=== PATIENT | female | born 1985 | race Caucasian/White ===

== ENCOUNTER → 2017-07-10 | Outpatient (REF) | payer OTHER ==
[2017-07-10 11:53] LABS: BASO % 0.6 % (0.0-1.0); EOS # 0.2 10^3/uL (0.0-0.50); EOS % 2.6 % (0.0-3.0); HEMATOCRIT 36.6 % (36.0-47.0); HEMOGLOBIN 11.4 g/dl (12.0-15.5); IMMATURE GRANULOCYTE % 0.3 % (0-3.0); LYMPH # 2.5 10^3/uL (1.5-4.5); LYMPH % 36.3 % (24.0-44.0); MEAN CORPUSCULAR HEMOGLOBIN 25.4 pg (27.0-33.0); MEAN CORPUSCULAR HGB CONC 31.1 g/dl (32.0-36.5); MEAN CORPUSCULAR VOLUME 81.7 fl (80.0-96.0); MONO # 0.5 10^3/uL (0.0-0.8); MONO % 7.3 % (0.0-5.0); NEUTROPHILS # 3.7 10^3/uL (1.8-7.7); NEUTROPHILS % 52.9 % (36.0-66.0); PLATELET COUNT, AUTOMATED 233 10^3/uL (150-450); RED BLOOD COUNT 4.48 10^6/uL (4.00-5.40); RED CELL DISTRIBUTION WIDTH 13.9 % (11.5-14.5)
[2017-07-10 12:24] LABS: ALBUMIN 4.2 GM/DL (3.2-5.2); ALBUMIN/GLOBULIN RATIO 1.35 (1.00-1.93); ALKALINE PHOSPHATASE 69 U/L (45-117); ALT/SGPT 17 U/L (12-78); ANION GAP 9 MEQ/L (8-16); AST/SGOT 22 U/L (7-37); BILIRUBIN,TOTAL 0.5 MG/DL (0.2-1.0); BLOOD UREA NITROGEN 13 MG/DL (7-18); CARBON DIOXIDE LEVEL 28 MEQ/L (21-32); CHLORIDE LEVEL 104 MEQ/L (98-107); CHOLESTEROL LEVEL 130 MG/DL (<200); CREATININE FOR GFR 0.79 MG/DL (0.55-1.30); GLOMERULAR FILTRATION RATE > 60.0 (>60); GLUCOSE, FASTING 99 MG/DL (70-100); HDL CHOLESTEROL 50 MG/DL (>40); LDL CHOLESTEROL 62.8 MG/DL (<100); NON-HDL-C 80 MG/DL; POTASSIUM SERUM 3.9 MEQ/L (3.5-5.1); SODIUM LEVEL 141 MEQ/L (136-145); TOTAL PROTEIN 7.3 GM/DL (6.4-8.2); TRIGLYCERIDES LEVEL 86 MG/DL (<150)
== END ==
LOC: M SFHCCLAY 07:55
DX: Z13.6 Encounter for screening for cardiovascular disorders (principal)
CPT/HCPCS: 84443

== ENCOUNTER → 2017-07-14 | Outpatient (REF) | payer OTHER ==
[2017-07-14 17:52] LABS: FERRITIN 4 NG/ML (8-252); IRON (FE) 69 UG/DL (50-170); PERCENT SATURATION 14.1 % (13.2-45.0); TOTAL IRON BINDING CAPACITY 491 UG/DL (250-450)
== END ==
LOC: M SFHCCAPE 09:33
DX: D64.9 Anemia, unspecified (principal)
CPT/HCPCS: 83550

== ENCOUNTER → 2017-09-11 | Outpatient (REF) | payer OTHER ==
[2017-09-16 14:58] LABS: HPV HYBRID CAPTURE II Negative (Negative)
== END ==
LOC: M LAB REF 17:10
DX: Z12.4 Encounter for screening for malignant neoplasm of cervix (principal)

== ENCOUNTER → 2018-07-07 | Outpatient (REF) | payer OTHER ==
[~2018-07-07] MED LIST: FERR325T18 PO; IBUP80TA PO; IRON325T PO; MAPA500T2 PO; PRENTAB43 PO; VITMTA PO
[2018-07-07 19:19] LABS: EOS % 0.8 % (0.0-3.0); HEMATOCRIT 24.8 % (36.0-47.0); LYMPH # 1.3 10^3/uL (1.5-4.5); LYMPH % 32.8 % (24.0-44.0); MEAN CORPUSCULAR HEMOGLOBIN 17.3 pg (27.0-33.0); MEAN CORPUSCULAR VOLUME 69.1 fl (80.0-96.0); MONO # 0.2 10^3/uL (0.0-0.8); MONO % 5.8 % (0.0-5.0); NEUTROPHILS # 2.4 10^3/uL (1.8-7.7); NEUTROPHILS % 59.3 % (36.0-66.0); PLATELET COUNT, AUTOMATED 223 10^3/uL (150-450); RED BLOOD COUNT 3.59 10^6/uL (4.00-5.40)
[2018-07-07 19:27] LABS: ALBUMIN 4.2 GM/DL (3.2-5.2); ALT/SGPT 17 U/L (12-78); BILIRUBIN,TOTAL 0.5 MG/DL (0.2-1.0); BLOOD UREA NITROGEN 14 MG/DL (7-18); CALCIUM LEVEL 8.2 MG/DL (8.5-10.1); CARBON DIOXIDE LEVEL 25 MEQ/L (21-32); CHLORIDE LEVEL 108 MEQ/L (98-107); CHOLESTEROL LEVEL 121 MG/DL (<200); CREATININE FOR GFR 0.74 MG/DL (0.55-1.30); FERRITIN 3 NG/ML (8-252); GLOMERULAR FILTRATION RATE > 60.0 (>60); GLUCOSE, FASTING 93 MG/DL (70-100); HDL CHOLESTEROL 54 MG/DL (>40); IRON (FE) 106 UG/DL (50-170); LDL CHOLESTEROL 55 MG/DL (<100); NON-HDL-C 67 MG/DL; PERCENT SATURATION 21.3 % (13.2-45.0); POTASSIUM SERUM 3.8 MEQ/L (3.5-5.1); SODIUM LEVEL 139 MEQ/L (136-145); TOTAL IRON BINDING CAPACITY 498 UG/DL (250-450); TOTAL PROTEIN 7.2 GM/DL (6.4-8.2); TRIGLYCERIDES LEVEL 62 MG/DL (<150); VITAMIN B12 LEVEL 699 PG/ML (247-911)
[2018-07-07 19:32] LABS: HEMOGLOBIN 6.2 g/dl (12.0-15.5)
[2018-07-12 06:25] LABS: HEMOGLOBIN A1c 5.3 %
== END ==
LOC: M SFHCCAPE 09:11
PROVIDERS: ATTEND Physician Assistant
DX: Z13.6 Encounter for screening for cardiovascular disorders (principal); D64.9 Anemia, unspecified; Z83.3 Family history of diabetes mellitus
CPT/HCPCS: 36415; 80053; 80061; 82607; 82728; 83036; 83550; 84443; 85025; 93005; G0463

== ENCOUNTER 2018-07-08 13:56 | Emergency (ER) | payer OTHER ==
[~2018-07-08] VITALS: Ht 162.6 cm; Wt 63.6 kg
[~2018-07-08 13:56] MED LIST changes: -FERR325T18 PO; -VITMTA PO
[2018-07-08] MEDS ORDERED: FERR325T18 PO (14:03)
[2018-07-08 14:44] LABS: BASO % 0.3 % (0.0-1.0); EOS % 0.3 % (0.0-3.0); HEMATOCRIT 24.2 % (36.0-47.0); LYMPH % 27.2 % (24.0-44.0); MEAN CORPUSCULAR HEMOGLOBIN 17.7 pg (27.0-33.0); MONO # 0.4 10^3/uL (0.0-0.8); MONO % 5.3 % (0.0-5.0); NEUTROPHILS # 4.8 10^3/uL (1.8-7.7); NEUTROPHILS % 66.6 % (36.0-66.0); PLATELET COUNT, AUTOMATED 245 10^3/uL (150-450); RED BLOOD COUNT 3.56 10^6/uL (4.00-5.40); WHITE BLOOD COUNT 7.2 10^3/uL (4.0-10.0)
[2018-07-08 15:00] LABS: INR 1.07
[2018-07-08 15:01] LABS: PARTIAL THROMBOPLASTIN TIME 30.9 SECONDS (25.4-37.6)
[2018-07-08 15:02] LABS: HEMOGLOBIN 6.3 g/dl (12.0-15.5)
--- NOTE | 2018-07-08 15:02 | REP ---
CHEST, SINGLE VIEW: There is no evidence of acute infiltrate. No pleural effusion is seen. The heart is normal in size. The mediastinal silhouette is unremarkable. The visualized osseous structures are intact. IMPRESSION: No acute pulmonary disease. Electronically Signed by Migue Byrd MD 07/09/2018 12:22 P
[2018-07-08] MEDS ORDERED: VITMTA PO (15:11)
[2018-07-08 15:26] LABS: ALBUMIN 4.1 GM/DL (3.2-5.2); ALT/SGPT 18 U/L (12-78); BILIRUBIN,DIRECT < 0.1 MG/DL (0.0-0.2); BILIRUBIN,TOTAL 0.4 MG/DL (0.2-1.0); BLOOD UREA NITROGEN 13 MG/DL (7-18); CALCIUM LEVEL 8.5 MG/DL (8.5-10.1); CARBON DIOXIDE LEVEL 25 MEQ/L (21-32); CHLORIDE LEVEL 108 MEQ/L (98-107); CK-MB VALUE MASS < 1.0 NG/ML (<3.6); CPK CREATINE PHOSPHOKINASE 59 U/L (26-192); FREE T4 1.11 NG/DL (0.76-1.46); GLOMERULAR FILTRATION RATE > 60.0 (>60); GLUCOSE, FASTING 86 MG/DL (70-100); LIPASE 194 U/L (73-393); MB/CK RELATIVE INDEX 1.69 (< OR =4); POTASSIUM SERUM 3.5 MEQ/L (3.5-5.1); SODIUM LEVEL 140 MEQ/L (136-145); TOTAL PROTEIN 7.5 GM/DL (6.4-8.2); TROPONIN I < 0.02 NG/ML (< 0.10)
--- NOTE | 2018-07-08 16:09 | REP ---
PELVIC ULTRASOUND: Real-time sonographic evaluation of the pelvis was performed utilizing transabdominal and endovaginal technique. The bladder measures 13.4 x 6.9 x 9.0 cm. The uterus measures 8.5 x 4.7 x 6.6 cm. Endometrial thickness is 3 mm. The uterus is retroverted. Right ovary measures 3.7 x 2.0 x 2.0 cm and left ovary 3.9 x 1.8 x 2.1 cm. There is mild complex free fluid in the pelvis. No torsion is seen of either ovary. Normal sized follicles are seen. There is no adnexal mass. IMPRESSION: Normal endometrial thickness. No ovarian torsion. Mild complex free fluid in the pelvis. No other significant finding. Electronically Signed by Migue Byrd MD 07/09/2018 12:28 P
[2018-07-08 17:13] LABS: CHLAMYDIA DNA AMPLIFICATION NEGATIVE (NEGATIVE); GC DNA AMPLIFICATION NEGATIVE (NEGATIVE)
[2018-07-08] MEDS ORDERED: ACETAMINOPHEN 500 MG TAB PO PRN (18:15)
--- NOTE | 2018-07-08 18:20 | HPEPDOC ---
General Date of Admission 07/08/18 Chief Complaint The patient is a 33-year-old female admitted with a reason for visit of Blood Transfusion. History of Present Illness 33-year-old female with past medical history of iron deficiency anemia presented to the ER with a chief complaint of chest pain, generalized fatigue, and shor tness of breath. The patient states that she went to see her primary care physician yesterday and had lab work drawn which revealed a hemoglobin of 6.2. She was instructed to go to the ER for a blood transfusion. The patient states that she has been having heavier menstrual bleeding over the last several months. She states that she has been having a 10 day long menses every 3 weeks. She notes that on the first few days of the menstrual cycle she soaks about 3-4 pads daily, and then continues to spot thereafter. 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 Otherwise, the patient denies any complaints of fevers, chills, abdominal pain, nausea/vomiting/diarrhea, or any other overt sources of bleeding. In the ER, a vaginal exam done by the ER provider did not reveal any acute findings. An ultrasound of the pelvis revealed normal endometrial thickness with no ovarian torsion. The patient will be admitted under the hospitalist service for blood transfusion. Home Medications Scheduled Ferrous Sulfate (Ferrous Sulfate) 325 Mg Tablet, 325 MG PO DAILY, (Reported) Multivitamins (Thera M Plus Tablet) 1 Each Tablet, 1 TAB PO DAILY, (Reported) Scheduled PRN Acetaminophen (Mapap) 500 Mg Tab, 1,000 MG PO Q6H PRN for PAIN, (Reported) Allergies Coded Allergies: No Known Allergies (Unverified , 05/15/14) Past Medical History Medical History As noted in HPI. Social History * Smoker: Denies Alcohol: Denies Drugs: denies A-FIB/CHADSVASC A-FIB History Current/History of A-Fib/PAF?: No Review of Systems Other systems 10 point review of systems negative unless otherwise specified in HPI. Physical Examination General Exam: Positive: Alert, Cooperative, No Acute Distress ENT Exam: Positive: Atraumatic, Mucous membr. moist/pink Neck Exam: Negative: JVD Chest Exam: Positive: Clear to auscultation, Normal air movement Heart Exam: Positive: Rate Normal, Normal S1, Normal S2 Abdomen Exam: Positive: Soft; Negative: Tenderness Extremity Exam: Negative: Tenderness, Swelling Psych Exam: Positive: Oriented x 3 Vital Signs Vital Signs Date Time Temp Pulse Resp B/P (MAP) Pulse Ox O2 Delivery O2 Flow Rate FiO2 07/08/18 17:40 98.2 81 18 99/64 (76) 100 Room Air Laboratory Data Labs 24H Laboratory Tests 2 07/08/18 14:15: Anion Gap 7L, Glomerular Filtration Rate > 60.0, Calcium Level 8.5, Aspartate Amino Transf (AST/SGOT) 20, Alanine Aminotransferase (ALT/SGPT) 18, Alkaline Phosphatase 58, Total Bilirubin 0.4, Direct Bilirubin < 0.1, Total Creatine Kinase 59, Creatine Kinase MB < 1.0, Creatine Kinase MB Relative Index 1.69, Troponin I < 0.02, Total Protein 7.5, Albumin 4.1, Albumin/Globulin Ratio 1.21, Lipase 194, Thyroid Stimulating Hormone (TSH) 2.280, Free Thyroxine 1.11 07/08/18 14:18: Immature Granulocyte % (Auto) 0.3, White Blood Count 7.2, Red Blood Count 3.56L, Hemoglobin 6.3*L, Hematocrit 24.2L, Mean Corpuscular Volume 68.0L, Mean Corpuscular Hemoglobin 17.7L, Mean Corpuscular Hemoglobin Concent 26.0L, Red Cell Distribution Width 18.3H, Platelet Count 245, Neutrophils (%) (Auto) 66.6H, Lymphocytes (%) (Auto) 27.2, Monocytes (%) (Auto) 5.3H, Eosinophils (%) (Auto) 0.3, Basophils (%) (Auto) 0.3, Neutrophils # (Auto) 4.8, Lymphocytes # (Auto) 2.0, Monocytes # (Auto) 0.4, Eosinophils # (Auto) 0.0, Basophils # (Auto) 0.0, Nucleated Red Blood Cells % (auto) 0.0, Prothrombin Time 14.0, Prothromb Time International Ratio 1.07, Activated Partial Thromboplast Time 30.9 07/08/18 14:56: POC Beta HCG, Quantitative < 5.0 07/08/18 15:19: Chlamydia trachomatis DNA (LEI) NEGATIVE, Neisseria gonorrhoeae DNA (LEI) NEGATIVE, Trichomonas vaginalis (PCR) NOT DETECTED CBC/BMP Laboratory Tests 07/08/18 14:15 07/08/18 14:18 Red Blood Count 3.56 L, Mean Corpuscular Volume 68.0 L, Mean Corpuscular Hemoglobin 17.7 L, Mean Corpuscular Hemoglobin Concent 26.0 L, Red Cell Distribution Width 18.3 H, Neutrophils (%) (Auto) 66.6 H, Lymphocytes (%) (Auto) 27.2, Monocytes (%) (Auto) 5.3 H, Eosinophils (%) (Auto) 0.3, Basophils (%) (A uto) 0.3, Neutrophils # (Auto) 4.8, Lymphocytes # (Auto) 2.0, Monocytes # (Auto) 0.4, Eosinophils # (Auto) 0.0, Basophils # (Auto) 0.0 Microbiology Microbiology 07/08/18 Wet Prep - Final, Complete Plan / VTE VTE Prophylaxis Ordered?: Yes Plan Plan Symptomatic Anemia 2/2 Menorrhagia Vaginal Exam in the ER with no overt findings of mass, cervical tenderness, or any other abnormalities according to the ER provider Pelvic U/S with no acute findings We will transfuse the patient 2 Units of PRBC's Patient encouraged to continue taking her iron supplementation, as she states that she has not done so for the past 2 months due to running out of a prescription. We will call the patient's gynecology office to set up a close follow up after discharge. Continue to monitor in the interim DVT Prophylaxis OOB, Ambulation + SCDs/RICHARD Menchaca MD July 08, 2018 18:20
[2018-07-08 20:06] VITALS: BP 117/78
--- NOTE | 2018-07-08 22:21 | ECGEPIP ---
Stationary ECG Study [facility] - ED Test Date: 2018-07-08 Pat Name: ELIZABETH POP Department: Room: - Gender: F [employer] Helper: arnoldo : 1985 Requested By: Irina Denson Order Number: [id number] Reading MD: Rissa Rosales Measurements Intervals [place] Rate: 88 P: 61 [place]: 145 QRS: 23 QRSD: 79 T: 13 QT: 344 QTc: 417 Interpretive Statements SINUS RHYTHM NO PRIOR FOR COMPARISON Electronically Signed On 07-08-2018 22:21:16 EDT by Rissa Rosales
[2018-07-09] MEDS ORDERED: MULTIVITAMINS/MINERALS THERAP 1 TAB PO SCH (09:00)
[2018-07-09] MEDS ORDERED: FERROUS SULFATE 325MG TAB PO SCH (09:00)
== END 2018-07-08 19:56 | disposition home or self-care (01) ==
LOC: M ED 13:56
DX: D50.0 Iron deficiency anemia secondary to blood loss (chronic) (principal); N92.0 Excessive and frequent menstruation with regular cycle; K92.2 Gastrointestinal hemorrhage, unspecified; Z79.899 Other long term (current) drug therapy; Z79.3 Long term (current) use of hormonal contraceptives

== ENCOUNTER 2018-07-08 17:15 | Observation (INO) | payer OTHER ==
[~2018-07-08] VITALS: Ht 165.1 cm; Wt 64.7 kg
[~2018-07-08 17:15] MED LIST changes: +FERR325T18 PO; +VITMTA PO
[2018-07-08 20:06] VITALS: BP 117/78
[2018-07-08 20:55] VITALS: BP 129/81
[2018-07-08] MEDS ORDERED: ACETAMINOPHEN 500 MG TAB PO PRN (22:45)
[2018-07-08] MEDS ORDERED: ACETAMINOPHEN TAB 650MG DOSE (2X325MG) PO PRN (22:45)
--- NOTE | 2018-07-09 04:39 | TRANSCARE ---
Transition of Care: Transition of Care Notified by nursing on 07/08/18at 2210 regarding wrong account number registration and that pt still in house but will need ordered to be re-ordered. All orders were re-ordered the same upon admission except for admission orders. Discussed with night time attending. CHER DELGADILLO DO July 09, 2018 04:38
[2018-07-09 06:00] VITALS: BP 108/65
[2018-07-09 07:06] LABS: HEMATOCRIT 30.4 % (36.0-47.0); MEAN CORPUSCULAR HEMOGLOBIN 20.5 pg (27.0-33.0); MEAN CORPUSCULAR HGB CONC 28.3 g/dl (32.0-36.5); MEAN CORPUSCULAR VOLUME 72.6 fl (80.0-96.0); PLATELET COUNT, AUTOMATED 216 10^3/uL (150-450); RED BLOOD COUNT 4.19 10^6/uL (4.00-5.40); WHITE BLOOD COUNT 5.7 10^3/uL (4.0-10.0)
[2018-07-09 07:09] LABS: HEMOGLOBIN 8.6 g/dl (12.0-15.5)
[2018-07-09 07:22] LABS: BLOOD UREA NITROGEN 14 MG/DL (7-18); CALCIUM LEVEL 8.5 MG/DL (8.5-10.1); CARBON DIOXIDE LEVEL 27 MEQ/L (21-32); CHLORIDE LEVEL 110 MEQ/L (98-107); CREATININE FOR GFR 0.74 MG/DL (0.55-1.30); GLOMERULAR FILTRATION RATE > 60.0 (>60); GLUCOSE, FASTING 84 MG/DL (70-100); SODIUM LEVEL 140 MEQ/L (136-145)
[2018-07-09] MEDS ORDERED: FERROUS SULFATE 325MG TAB PO SCH (09:00)
[2018-07-09] MEDS ORDERED: MULTIVITAMINS/MINERALS THERAP 1 TAB PO SCH (09:00)
[2018-07-09] MEDS ORDERED: INFLUENZA QUADRIVALENT PF VACCINE 0.5ML SYRINGE (90686) IM ONE (09:00)
--- NOTE | 2018-07-09 17:17 | DS.PDOC ---
Discharge Summary General Date of Admission July 08, 2018 at 17:15 Date of Discharge 07/09/18 Discharge Summary PROCEDURES PERFORMED DURING STAY: None. ADMITTING/DISCHARGE DIAGNOSES: Symptomatic anemia secondary to menorrhagia COMPLICATIONS/CHIEF COMPLAINT: Symptomic Anemia. HISTORY OF PRESENT ILLNESS: . 33-year-old female with past medical history of iron deficiency anemia presented to the ER with a chief complaint of chest pain, generalized fatigue, and shortness of breath. The patient states that she went to see her primary care physician yesterday and had lab work drawn which revealed a hemoglobin of 6.2. She was instructed to go to the ER for a blood transfusion. The patient states that she has been having heavier menstrual bleeding over the last several months. She states that she has been having a 10 day long menses every 3 weeks. She notes that on the first few days of the menstrual cycle she soaks about 3-4 pads daily, and then continues to spot thereafter. She reports that she last saw her bag patcher one year ago and was told that her heavy menstrual cycle was due to her Nexplanon etonogestrel implant for control. Otherwise, the patient denies any complaints of fevers, chills, abdominal pain, nausea/vomiting/diarrhea, or any other overt sources of bleeding. In the ER, a vaginal exam done by the ER provider did not reveal any acute findings. An ultrasound of the pelvis revealed normal endometrial thickness with no ovarian torsion. The patient will be admitted under the hospitalist service for blood transfusion. During hospitalization, the patient received 2 units of packed red blood cells. The patient's hemoglobin up trended appropriately. The patient stated that she feels back to her baseline and denies any complaints of shortness of breath, chest pain. She has been noted to be ambulating in her room and in the hallway without any acute complaints. The patient states that she is eager to go home at this time. I have extensively discussed the need for the patient to follow-up with her bag patcher for further workup of her menorrhagia. She has been s cheduled an appointment with [facility] on 07[facility]18 at 3 PM. She is to follow-up with her primary care physician within 7 days. DISCHARGE MEDICATIONS: Please see below. ALLERGIES: Please see below. PHYSICAL EXAMINATION ON DISCHARGE: VITAL SIGNS: Please see below. General Exam: Positive: Alert, Cooperative, No Acute Distress ENT Exam: Positive: Atraumatic, Mucous membr. moist/pink Neck Exam: Negative: JVD Chest Exam: Positive: Clear to auscultation, Normal air movement Heart Exam: Positive: Rate Normal, Normal S1, Normal S2 Abdomen Exam: Positive: Soft; Negative: Tenderness Extremity Exam: Negative: Tenderness, Swelling Psych Exam: Positive: Oriented x 3 LABORATORY DATA: Please see below. IMAGING: CHEST, SINGLE VIEW: There is no evidence of acute infiltrate. No pleural effusion is seen. The heart is normal in size. The mediastinal silhouette is unremarkable. The visualized osseous structures are intact. IMPRESSION: No acute pulmonary disease. PELVIC ULTRASOUND: Real-time sonographic evaluation of the pelvis was performed utilizing transabdominal and endovaginal technique. The bladder measures 13.4 x 6.9 x 9.0 cm. The uterus measures 8.5 x 4.7 x 6.6 cm. Endometrial thickness is 3 mm. The uterus is retroverted. Right ovary measures 3.7 x 2.0 x 2.0 cm and left ovary 3.9 x 1.8 x 2.1 cm. There is mild complex free fluid in the pelvis. No torsion is seen of either ovary. Normal sized follicles are seen. There is no adnexal mass. IMPRESSION: Normal endometrial thickness. No ovarian torsion. Mild complex free fluid in the pelvis. No other significant finding. PROGNOSIS: Fair ACTIVITY: As tolerated. DIET: Regular diet DISCHARGE PLAN: DISPOSITION: 01 Home, Self-Care. DISCHARGE INSTRUCTIONS: I have extensively discussed the need for the patient to follow-up with her bag patcher for further workup of her menorrhagia. She has been scheduled an appointment with [facility] on 07/13/18 at 3 PM. She is to follow-up with her primary care physician within 7 days. DISCHARGE CONDITION: Stable. TIME SPENT ON DISCHARGE: Greater than 30 minutes. Vital Signs/I&Os Vital Signs Date Time Temp Pulse Resp B/P (MAP) Pulse Ox O2 Delivery O2 Flow Rate FiO2 07/09/18 06:00 97.8 70 16 108/65 (79) 98 I&O- Last 24 Hours up to 6 AM 07/09/18 06:00 Intake Total 0 ml Output Total 0 ml Balance 0 ml Laboratory Data Labs 24H Laboratory Tests 2 07/09/18 06:37: Nucleated Red Blood Cells % (auto) 0.0, Anion Gap 3L, Glomerular Filtration Rate > 60.0, Blood Urea Nitrogen 14, Creatinine 0.74, Sodium Level 140, Potassium Level 4.0, Chloride Level 110H, Carbon Dioxide Level 27, Calcium Level 8.5 CBC/BMP Laboratory Tests 07/09/18 06:37 Red Blood Count 4.19, Mean Corpuscular Volume 72.6 L, Mean Corpuscular Hemoglobin 20.5 L, Mean Corpuscular Hemoglobin Concent 28.3 L, Red Cell Distribution Width 21.0 H, Calcium Level 8.5 Discharge Medications Scheduled Ferrous Sulfate (Ferrous Sulfate) 325 Mg Tablet, 325 MG PO DAILY, (Reported) Multivitamins (Thera M Plus Tablet) 1 Each Tablet, 1 TAB PO DAILY, (Reported) Scheduled PRN Acetaminophen (Mapap) 500 Mg Tab, 1,000 MG PO Q6H PRN for PAIN, (Reported) Allergies Coded Allergies: No Known Allergies (Unverified , 05/15/14) RICHARD BURROWS MD July 09, 2018 17:17
== END 2018-07-09 11:30 | disposition home or self-care (01) ==
LOC: M ED INP 17:15 → M MS4PR 20:00
PROVIDERS: ADMIT Internal Medicine; ATTEND Internal Medicine
DX: D64.9 Anemia, unspecified (principal); N92.4 Excessive bleeding in the premenopausal period; Z79.899 Other long term (current) drug therapy; R07.9 Chest pain, unspecified; R53.83 Other fatigue; R06.02 Shortness of breath
CPT/HCPCS: 36415; 36430; 71045; 76830; 76856; 80048; 80076; 82550; 82553; 83690; 84439; 84443; 84484; 84702; 85025; 85027; 85610; 85730; 86850; 86900; 86901; 86920; 87210; 87661; 90471; 90686; 93005; 93041; 93976; 94760; 99285; P9016

== ENCOUNTER → 2018-07-15 | Outpatient (REF) | payer OTHER ==
[2018-07-15 16:53] LABS: BASO % 0.7 % (0.0-1.0); EOS # 0.1 10^3/uL (0.0-0.50); EOS % 1.7 % (0.0-3.0); HEMATOCRIT 34.2 % (36.0-47.0); HEMOGLOBIN 9.4 g/dl (12.0-15.5); LYMPH # 1.7 10^3/uL (1.5-4.5); LYMPH % 29.4 % (24.0-44.0); MEAN CORPUSCULAR HEMOGLOBIN 20.5 pg (27.0-33.0); MEAN CORPUSCULAR HGB CONC 27.5 g/dl (32.0-36.5); MEAN CORPUSCULAR VOLUME 74.5 fl (80.0-96.0); MONO # 0.3 10^3/uL (0.0-0.8); MONO % 5.4 % (0.0-5.0); NEUTROPHILS # 3.7 10^3/uL (1.8-7.7); NEUTROPHILS % 62.5 % (36.0-66.0); PLATELET COUNT, AUTOMATED 213 10^3/uL (150-450); RED BLOOD COUNT 4.59 10^6/uL (4.00-5.40); WHITE BLOOD COUNT 5.9 10^3/uL (4.0-10.0)
[2018-07-15 17:15] LABS: ALT/SGPT 19 U/L (12-78); BILIRUBIN,TOTAL 0.6 MG/DL (0.2-1.0); BLOOD UREA NITROGEN 10 MG/DL (7-18); CALCIUM LEVEL 9.1 MG/DL (8.5-10.1); CARBON DIOXIDE LEVEL 25 MEQ/L (21-32); CHLORIDE LEVEL 107 MEQ/L (98-107); CREATININE FOR GFR 0.69 MG/DL (0.55-1.30); FERRITIN 10 NG/ML (8-252); GLOMERULAR FILTRATION RATE > 60.0 (>60); GLUCOSE, FASTING 86 MG/DL (70-100); IRON (FE) 259 UG/DL (50-170); PERCENT SATURATION 54.9 % (13.2-45.0); POTASSIUM SERUM 4.2 MEQ/L (3.5-5.1); SODIUM LEVEL 139 MEQ/L (136-145); TOTAL IRON BINDING CAPACITY 472 UG/DL (250-450); TOTAL PROTEIN 7.3 GM/DL (6.4-8.2)
== END ==
LOC: M SFHCCAPE 09:43
PROVIDERS: ATTEND Physician Assistant
DX: D50.9 Iron deficiency anemia, unspecified (principal)

== ENCOUNTER → 2018-08-16 | Outpatient (REF) | payer OTHER ==
[2018-08-16 15:12] LABS: CHLAMYDIA DNA AMPLIFICATION NEGATIVE (NEGATIVE); GC DNA AMPLIFICATION NEGATIVE (NEGATIVE)
== END ==
LOC: M LAB REF 13:01
PROVIDERS: ATTEND Advanced Practice Midwife
DX: Z11.3 Encounter for screening for infections with a predominantly sexual mode of transmission (principal)

== ENCOUNTER → 2019-08-12 | Outpatient (REF) | payer OTHER ==
[2019-08-12 12:32] LABS: BASO % 0.4 % (0.0-1.0); EOS # 0.1 10^3/uL (0.0-0.5); EOS % 1.7 % (0.0-3.0); HEMATOCRIT 43.2 % (36.0-47.0); HEMOGLOBIN 15.1 g/dl (12.0-15.5); LYMPH # 2.2 10^3/uL (1.5-5.0); LYMPH % 30.4 % (24.0-44.0); MEAN CORPUSCULAR HEMOGLOBIN 31.5 pg (27.0-33.0); MONO # 0.4 10^3/uL (0.0-0.8); MONO % 5.5 % (0.0-5.0); NEUTROPHILS # 4.4 10^3/uL (1.5-8.5); NEUTROPHILS % 61.7 % (36.0-66.0); PLATELET COUNT, AUTOMATED 196 10^3/uL (150-450); WHITE BLOOD COUNT 7.1 10^3/uL (4.0-10.0)
[2019-08-12 13:05] LABS: PERCENT SATURATION 56.6 % (13.2-45.0)
== END ==
LOC: M LABDRAWC 11:39
PROVIDERS: ATTEND Internal Medicine Hematology & Oncology
DX: D64.9 Anemia, unspecified (principal)

== ENCOUNTER → 2020-09-03 | Outpatient (REF) | payer OTHER ==
[2020-09-03 16:31] LABS: ALBUMIN 4.1 GM/DL (3.2-5.2); ALT/SGPT 19 U/L (12-78); BILIRUBIN,TOTAL 0.8 MG/DL (0.2-1.0); BLOOD UREA NITROGEN 18 MG/DL (7-18); CALCIUM LEVEL 9.2 MG/DL (8.5-10.1); CARBON DIOXIDE LEVEL 27 MEQ/L (21-32); CHLORIDE LEVEL 105 MEQ/L (98-107); CHOLESTEROL LEVEL 161 MG/DL (<200); CHOLESTEROL RISK RATIO 3.659 (<5); CREATININE FOR GFR 0.71 MG/DL (0.55-1.30); FERRITIN 110 NG/ML (8-252); GLOMERULAR FILTRATION RATE > 60.0 (>60); GLUCOSE, FASTING 91 MG/DL (70-100); HDL CHOLESTEROL 44 MG/DL (>40); IRON (FE) 89 UG/DL (50-170); LDL CHOLESTEROL 100 MG/DL (<100); NON-HDL-C 117 MG/DL; PERCENT SATURATION 29.7 % (13.2-45.0); POTASSIUM SERUM 4.3 MEQ/L (3.5-5.1); SODIUM LEVEL 138 MEQ/L (136-145); TOTAL 25(OH) VITAMIN D 16.8 NG/ML (30.0-100.0); TOTAL IRON BINDING CAPACITY 300 UG/DL (250-450); TOTAL PROTEIN 7.2 GM/DL (6.4-8.2); TRIGLYCERIDES LEVEL 86 MG/DL (<150)
== END ==
LOC: M SFHCCLAY 09:20
PROVIDERS: ATTEND Physician Assistant
DX: Z00.00 Encounter for general adult medical examination without abnormal findings (principal); D50.0 Iron deficiency anemia secondary to blood loss (chronic)

== ENCOUNTER → 2021-02-07 | Outpatient (CLI) | payer OTHER | LOC: M PLAIMG 15:19 | PROVIDERS: ATTEND Physician Assistant | DX: G43.019 Migraine without aura, intractable, without status migrainosus (principal) ==

== ENCOUNTER → 2022-01-06 | Outpatient (REF) | payer OTHER | LOC: M SFHCCAPE 10:28 | PROVIDERS: ATTEND Physician Assistant | DX: Z01.419 Encounter for gynecological examination (general) (routine) without abnormal findings (principal) ==

== ENCOUNTER → 2022-05-15 | Outpatient (CLI) | payer OTHER | LOC: M CLY 10:41 | PROVIDERS: ATTEND Physician Assistant | DX: M25.561 Pain in right knee (principal) ==

== ENCOUNTER → 2023-04-15 | Outpatient (CLI) | payer OTHER | LOC: M CLY 14:58 | PROVIDERS: ATTEND Physician Assistant Medical | DX: M25.542 Pain in joints of left hand (principal) ==

== ENCOUNTER → 2023-06-29 | Outpatient (REF) | payer OTHER ==
[2023-06-29 17:38] LABS: BASO % 0.4 % (0.0-1.0); EOS % 0.6 % (0.0-3.0); HEMATOCRIT 41.9 % (36.0-47.0); LYMPH % 30.2 % (24.0-44.0); MEAN CORPUSCULAR HEMOGLOBIN 30.6 pg (27.0-33.0); MEAN CORPUSCULAR HGB CONC 33.4 g/dl (32.0-36.5); MEAN CORPUSCULAR VOLUME 91.7 fl (80.0-96.0); MONO # 0.4 10^3/uL (0.0-0.8); MONO % 5.9 % (2.0-8.0); NEUTROPHILS # 4.2 10^3/uL (1.5-8.5); NEUTROPHILS % 62.8 % (36.0-66.0); PLATELET COUNT, AUTOMATED 243 10^3/uL (150-450); RED BLOOD COUNT 4.57 10^6/uL (4.00-5.40); WHITE BLOOD COUNT 6.7 10^3/uL (4.0-10.0)
[2023-06-29 17:58] LABS: ALBUMIN 4.2 G/DL (3.2-5.2); ALKALINE PHOSPHATASE 81 U/L (46-116); ALT/SGPT 23 U/L (7.0-40); AST/SGOT 27 U/L (<34); BLOOD UREA NITROGEN 11 MG/DL (9-23); CALCIUM LEVEL 9.7 MG/DL (8.5-10.1); CARBON DIOXIDE LEVEL 30 MMOL/L (20-31); CHLORIDE LEVEL 102 MMOL/L (98-107); CHOLESTEROL LEVEL 154 MG/DL (<200); CHOLESTEROL RISK RATIO 3.13 (<5); CREATININE FOR GFR 0.68 MG/DL (0.55-1.30); GLOMERULAR FILTRATION RATE > 60.0 (>58); GLUCOSE, FASTING 91 MG/DL (60-100); HDL CHOLESTEROL 49.2 MG/DL (>40); IRON (FE) 92 UG/DL (50-170); LDL CHOLESTEROL 90.2 MG/DL (<100); NON-HDL-C 104.8 MG/DL; PERCENT SATURATION 27.6 % (13.2-45.0); SODIUM LEVEL 137 MMOL/L (136-145); TOTAL IRON BINDING CAPACITY 333 UG/DL (250-425); TOTAL PROTEIN 6.9 G/DL (5.7-8.2); TRIGLYCERIDES LEVEL 73 MG/DL (<150)
[2023-06-29 18:00] LABS: HEMOGLOBIN A1c 4.6 % (4.0-6.0)
== END ==
LOC: M SFHCCLAY 11:37
PROVIDERS: ATTEND Physician Assistant Medical
DX: D50.9 Iron deficiency anemia, unspecified (principal); G43.019 Migraine without aura, intractable, without status migrainosus; Z13.220 Encounter for screening for lipoid disorders; Z13.1 Encounter for screening for diabetes mellitus

== ENCOUNTER → 2023-08-20 | Outpatient (REF) | payer OTHER ==
[2023-08-22 12:28] LABS: HPV APTIMA Not Detected (Not Detected)
== END ==
LOC: M SFHCWAGY 12:34
PROVIDERS: ATTEND Nurse Practitioner Family
DX: Z12.4 Encounter for screening for malignant neoplasm of cervix (principal)
CPT/HCPCS: 87624; G0123

== ENCOUNTER → 2023-08-20 | Outpatient (CLI) | payer OTHER | LOC: M WHC 11:00 | PROVIDERS: ATTEND Nurse Practitioner Family | DX: Z12.31 Encounter for screening mammogram for malignant neoplasm of breast (principal); R92.333 Mammographic heterogeneous density, bilateral breasts ==

== ENCOUNTER → 2023-10-13 | Outpatient (CLI) | payer OTHER | LOC: M WHC 12:54 | PROVIDERS: ATTEND Nurse Practitioner Family | DX: Z12.31 Encounter for screening mammogram for malignant neoplasm of breast (principal) ==

== ENCOUNTER → 2023-11-10 | Outpatient (REF) | payer OTHER ==
[2023-11-10 17:42] LABS: BASO % 0.3 % (0.0-1.0); EOS % 0.3 % (0.0-3.0); HEMATOCRIT 40.1 % (36.0-47.0); HEMOGLOBIN 13.6 g/dl (12.0-15.5); LYMPH # 2.1 10^3/uL (1.5-5.0); LYMPH % 26.5 % (24.0-44.0); MEAN CORPUSCULAR HEMOGLOBIN 30.7 pg (27.0-33.0); MEAN CORPUSCULAR HGB CONC 33.9 g/dl (32.0-36.5); MEAN CORPUSCULAR VOLUME 90.5 fl (80.0-96.0); MONO # 0.3 10^3/uL (0.0-0.8); MONO % 4.2 % (2.0-8.0); NEUTROPHILS # 5.4 10^3/uL (1.5-8.5); NEUTROPHILS % 68.4 % (36.0-66.0); PLATELET COUNT, AUTOMATED 252 10^3/uL (150-450); RED BLOOD COUNT 4.43 10^6/uL (4.00-5.40); WHITE BLOOD COUNT 7.9 10^3/uL (4.0-10.0)
[2023-11-10 17:47] LABS: ALBUMIN 4.2 G/DL (3.2-5.2); ALKALINE PHOSPHATASE 77 U/L (46-116); ALT/SGPT 15 U/L (7.0-40); AST/SGOT 22 U/L (<34); BILIRUBIN,TOTAL 0.8 MG/DL (0.3-1.2); BLOOD UREA NITROGEN 14 MG/DL (9-23); CALCIUM LEVEL 9.2 MG/DL (8.5-10.1); CARBON DIOXIDE LEVEL 29 MMOL/L (20-31); CHLORIDE LEVEL 104 MMOL/L (98-107); CREATININE FOR GFR 0.68 MG/DL (0.55-1.30); FOLATE > 24.0 NG/ML (>5.4); GLOMERULAR FILTRATION RATE > 60.0 (>58); GLUCOSE, FASTING 91 MG/DL (60-100); POTASSIUM SERUM 3.9 MMOL/L (3.5-5.1); SODIUM LEVEL 137 MMOL/L (136-145); VITAMIN B12 LEVEL 654 PG/ML (211-911)
[2023-11-15 02:32] LABS: VITAMIN E(ALPHA TOCOPHEROL) 10.7 mg/L (5.7-19.9)
[2023-11-16 16:36] LABS: VITAMIN B6,PYRIDOXAL PHOSPHATE 25.8 ng/mL (2.1-21.7)
== END ==
LOC: M LABDRAWC 16:52
PROVIDERS: ATTEND Psychiatry & Neurology Neurology
DX: R51.9 Headache, unspecified (principal)

== ENCOUNTER → 2024-04-18 | Outpatient (CLI) | payer OTHER | LOC: M WHC 12:44 | PROVIDERS: ATTEND Nurse Practitioner Family | DX: Z12.31 Encounter for screening mammogram for malignant neoplasm of breast (principal) ==

== ENCOUNTER → 2024-10-17 | Outpatient (CLI) | payer OTHER | LOC: M WHC 13:54 | PROVIDERS: ATTEND Nurse Practitioner Family | DX: R92.8 Other abnormal and inconclusive findings on diagnostic imaging of breast (principal); R92.333 Mammographic heterogeneous density, bilateral breasts | CPT/HCPCS: 77066; G0279 ==

== ENCOUNTER → 2025-02-20 | Outpatient (REF) | payer OTHER ==
[2025-02-20 17:42] LABS: BASO # 0.0 10^3/uL (0.0-0.2); BASO % 0.5 % (0.0-1.0); EOS # 0.1 10^3/uL (0.0-0.5); EOS % 0.6 % (0.0-3.0); LYMPH # 2.3 10^3/uL (1.5-5.0); LYMPH % 29.8 % (24.0-44.0); MONO # 0.5 10^3/uL (0.0-0.8); MONO % 5.9 % (2.0-8.0); NEUTROPHILS # 4.9 10^3/uL (1.5-8.5); NEUTROPHILS % 62.9 % (36.0-66.0); PLATELET COUNT, AUTOMATED 276 10^3/uL (150-450)
[2025-02-20 17:45] LABS: ALT/SGPT 15 U/L (7.0-40); AST/SGOT 26 U/L (<34); CALCIUM LEVEL 9.3 MG/DL (8.5-10.1); CARBON DIOXIDE LEVEL 28 MMOL/L (20-31); CHLORIDE LEVEL 107 MMOL/L (98-107); CHOLESTEROL LEVEL 167 MG/DL (<200); CHOLESTEROL RISK RATIO 3.62 (<5); CREATININE FOR GFR 0.77 MG/DL (0.55-1.30); GLOMERULAR FILTRATION RATE > 90.0 (>58); IRON (FE) 110 UG/DL (50-170); LDL CHOLESTEROL 96.7 MG/DL (<100); NON-HDL-C 120.9 MG/DL; PERCENT SATURATION 32.7 % (13.2-45.0); POTASSIUM SERUM 4.2 MMOL/L (3.5-5.1); SODIUM LEVEL 141 MMOL/L (136-145); TRIGLYCERIDES LEVEL 121 MG/DL (<150)
== END ==
LOC: M SFHCCLAY 13:56
PROVIDERS: ATTEND Physician Assistant Medical
DX: Z00.00 Encounter for general adult medical examination without abnormal findings (principal); D50.9 Iron deficiency anemia, unspecified; G43.019 Migraine without aura, intractable, without status migrainosus; Z13.220 Encounter for screening for lipoid disorders